=== PATIENT | male | born 2005 | race Two or more races ===

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

== ENCOUNTER → 2024-03-29 | Outpatient (CLI) | payer MEDICAID ==
[2024-03-29 10:14] LABS: Urine Bacteria None Seen /hpf (None Seen)
[2024-03-29 10:27] LABS: Basophils # (auto) 0 10 ^3/uL (0-0.2); Basophils % (auto) 0.2 % (0.0-2.0); Eosinophils # (auto) 0.3 10 ^3/uL (0-0.8); Eosinophils % (auto) 2.9 % (0.0-7.0); Hematocrit 47.2 % (41.0-53.0); Hemoglobin 16.1 g/dL (13.5-17.5); Lymphocytes % (auto) 44.4 % (10.0-50.0); Mean Corpuscular Hemoglobin 27.7 pg (28.0-32.0); Mean Corpuscular Hgb Conc. 34.2 g/dL (32.0-36.0); Mean Corpuscular Volume 81.2 fL (80.0-100.0); Monocytes # (auto) 0.6 10 ^3/uL (0-1.3); Monocytes % (auto) 6.4 % (0.0-12.0); Neutrophils # (auto) 4.1 10 ^3/uL (1.6-8.6); Neutrophils % (auto) 46.1 % (37.0-80.0); Nucleated Red Blood Cells % 0.1 %; Platelet Count (auto) 274 10^3/uL (140-450); Red Blood Cells 5.81 10^6/uL (4.5-5.90); Red Cell Distribution Width 13.7 % (11.8-14.3)
[2024-03-29 11:15] LABS: Urine Blood Negative /uL (Negative); Urine Clarity Clear (Clear); Urine Color Light-Yellow (Yellow); Urine Protein, UAD Negative (Negative); Urine Specific Gravity 1.022 (1.001-1.035); Urine Squamous Epithelial Cell None Seen /hpf (<5); Urine Urobilinogen Normal (Negative); Urine WBC < 1 /HPF (0-3)
[2024-03-29 11:34] LABS: Alkaline Phosphatase 108 U/L (46-116); Anion Gap 8 (5-15); Aspartate Aminotransferase 23 U/L (13-40); BUN/Creatinine Ratio 11.7 (10.0-20.0); Blood Urea Nitrogen 12 mg/dL (9-23); Calcium 10.2 mg/dL (8.7-10.4); Carbon Dioxide 28 mmol/L (20-31); Chloride 106 mmol/L (98-107); Glucose 94 mg/dL (74-106); Potassium 4.3 mmol/L (3.5-5.1); Sodium 142 mmol/L (136-145)
[2024-03-29 11:35] LABS: Alanine Aminotransferase 67 U/L (7-40); Bilirubin, Total 0.4 mg/dL (0.2-1.0); Cholesterol 152 mg/dL (< 200); LDL Cholesterol 101 mg/dL (< 100); Total Protein 7.6 g/dL (5.7-8.2); Triglycerides 194 mg/dL (< 150)
[2024-03-29 11:41] LABS: HDL Cholesterol 35 mg/dL (40-59)
[2024-03-30 07:06] LABS: Thyroid Peroxidase (TPO) Ab 11 IU/mL (0-26)
== END | disposition home or self-care (01) ==
LOC: LAB 09:56
PROVIDERS: ATTEND Student in an Organized Health Care Education/Training Program
DX: E55.9 Vitamin D deficiency, unspecified (principal); E03.8 Other specified hypothyroidism; L50.9 Urticaria, unspecified; R73.9 Hyperglycemia, unspecified; R03.0 Elevated blood-pressure reading, without diagnosis of hypertension
CPT/HCPCS: 36415; 80053; 80061; 81001; 82306; 82785; 83036; 84439; 84443; 85025; 86003; 86376

== ENCOUNTER → 2024-06-15 | Outpatient (CLI) | payer MEDICAID ==
[2024-06-15 09:34] LABS: Basophils # (auto) 0 10 ^3/uL (0-0.2); Basophils % (auto) 0.3 % (0.0-2.0); Eosinophils # (auto) 0.2 10 ^3/uL (0-0.8); Eosinophils % (auto) 2.8 % (0.0-7.0); Hematocrit 46.8 % (41.0-53.0); Hemoglobin 16.2 g/dL (13.5-17.5); Lymphocytes # (auto) 3.9 10 ^3/uL (0.4-5.4); Lymphocytes % (auto) 45.5 % (10.0-50.0); Mean Corpuscular Hemoglobin 27.6 pg (28.0-32.0); Mean Corpuscular Hgb Conc. 34.7 g/dL (32.0-36.0); Mean Corpuscular Volume 79.4 fL (80.0-100.0); Monocytes # (auto) 0.5 10 ^3/uL (0-1.3); Monocytes % (auto) 6.1 % (0.0-12.0); Neutrophils # (auto) 3.8 10 ^3/uL (1.6-8.6); Neutrophils % (auto) 45.3 % (37.0-80.0); Nucleated Red Blood Cells % 0.1 %; Platelet Count (auto) 270 10^3/uL (140-450); Red Blood Cells 5.89 10^6/uL (4.5-5.90); Red Cell Distribution Width 13.4 % (11.8-14.3); White Blood Cell 8.5 10^3/uL (4.4-10.8)
[2024-06-15 09:52] LABS: Urine Blood Negative /uL (Negative); Urine Clarity Clear (Clear); Urine Color Light-Yellow (Yellow); Urine Protein, UAD Negative (Negative); Urine Specific Gravity 1.022 (1.001-1.035); Urine Urobilinogen 2 mg/dL (Negative)
[2024-06-15 09:57] LABS: Albumin 4.8 g/dL (3.2-4.8); Anion Gap 9 (5-15); Aspartate Aminotransferase 28 U/L (13-40); BUN/Creatinine Ratio 10.5 (10.0-20.0); Bilirubin, Direct 0.2 mg/dL (<0.3); Bilirubin, Total 0.5 mg/dL (0.2-1.0); Blood Urea Nitrogen 10 mg/dL (9-23); Calcium 10.2 mg/dL (8.7-10.4); Carbon Dioxide 27 mmol/L (20-31); Cholesterol 157 mg/dL (< 200); Glucose 93 mg/dL (74-106); Potassium 4.4 mmol/L (3.5-5.1); Sodium 144 mmol/L (136-145); Total Protein 7.5 g/dL (5.7-8.2)
[2024-06-15 09:58] LABS: Alkaline Phosphatase 118 U/L (46-116); Chloride 108 mmol/L (98-107); HDL Cholesterol 32 mg/dL (40-59); LDL Cholesterol 106 mg/dL (< 100); Triglycerides 197 mg/dL (< 150)
[2024-06-15 10:31] LABS: Alanine Aminotransferase 76 U/L (7-40)
== END | disposition home or self-care (01) ==
LOC: LAB 09:14
PROVIDERS: ATTEND Internal Medicine Cardiovascular Disease
DX: Z01.89 Encounter for other specified special examinations (principal); I10 Essential (primary) hypertension; E66.811 Obesity, class 1
CPT/HCPCS: 36415; 80048; 80061; 80076; 81003; 83036; 84403; 84439; 84443; 85025

== ENCOUNTER → 2024-10-05 | Outpatient (CLI) | payer MEDICAID ==
[2024-10-05 10:50] LABS: Alkaline Phosphatase 113.0 U/L (46-116); Cholesterol 146.0 mg/dL (< 200); Total Protein 7.3 g/dL (5.7-8.2)
[2024-10-05 10:51] LABS: Alanine Aminotransferase 70.0 U/L (7-40); Albumin 4.9 g/dL (3.2-4.8); Bilirubin, Direct 0.2 mg/dL (<0.3); Bilirubin, Total 0.5 mg/dL (0.2-1.0); HDL Cholesterol 31.0 mg/dL (40-59); Triglycerides 216.0 mg/dL (< 150)
== END | disposition home or self-care (01) ==
LOC: LAB 10:06
PROVIDERS: ATTEND Student in an Organized Health Care Education/Training Program
DX: E78.5 Hyperlipidemia, unspecified (principal); R74.01 Elevation of levels of liver transaminase levels
CPT/HCPCS: 36415; 80061; 80076

== ENCOUNTER 2025-01-26 10:16 | Outpatient (CLI) | payer MEDICAID ==
[2025-01-26 11:23] LABS: Albumin 4.8 g/dL (3.2-4.8); Anion Gap 9 (5-15); BUN/Creatinine Ratio 9.7 (10.0-20.0); Blood Urea Nitrogen 10 mg/dL (9-23); Calcium 9.9 mg/dL (8.7-10.4); Carbon Dioxide 28 mmol/L (20-31); Chloride 106 mmol/L (98-107); Glucose 87 mg/dL (74-106); Potassium 4.7 mmol/L (3.5-5.1); Sodium 143 mmol/L (136-145); Total Protein 7.7 g/dL (5.7-8.2)
[2025-01-26 11:24] LABS: Bilirubin, Total 0.4 mg/dL (0.2-1.0)
[2025-01-26 11:25] LABS: Free T4 (Free Thyroxine) 1.25 ng/dL (0.89-1.76)
[2025-01-26 11:30] LABS: Alanine Aminotransferase 68 U/L (7-40); Alkaline Phosphatase 119 U/L (46-116)
== END 2025-01-26 17:00 | disposition home or self-care (01) ==
LOC: LAB 10:16
PROVIDERS: ATTEND Student in an Organized Health Care Education/Training Program
DX: E03.8 Other specified hypothyroidism (principal); R73.9 Hyperglycemia, unspecified
CPT/HCPCS: 36415; 80053; 84439; 84443; 84480; 86376